=== PATIENT | male | born 1955 | race Caucasian/White ===

== ENCOUNTER 2016-03-28 13:46 | Observation (INO) | payer BC ==
[2016-03-28 14:17] LABS: Hematocrit 44 % (42-52); Hemoglobin 14.8 g/dl (14.0-18.0); Mean Corpuscular HGB Conc 34 g/dl (31-36); Mean Corpuscular Hemoglobin 30 pg (27-31); Mean Corpuscular Volume 90 fL (80-94); Mean Platelet Volume 7 um3 (7.4-10.4); Red Blood Count 4.87 10^6/ul (4.0-5.4); Red Cell Distribution Width 13 % (10.5-15); White Blood Count 4.3 10^3/ul (3.5-10.8)
--- NOTE | 2016-03-28 14:18 | RAD ---
Indication: Neurologic changes. Code Royal. Left-sided weakness, slurred speech. CT of the brain was performed without IV contrast. Ventricular structures are midline. No midline shift is noted. The extra-axial spaces are unremarkable. There is no evidence of intracranial mass or hemorrhage. No other high or low density lesions are identified. Mastoid air cells and paranasal sinuses are otherwise unremarkable. IMPRESSION: NO INTRACRANIAL MASS OR HEMORRHAGE IS NOTED.
[2016-03-28] MEDS ORDERED: Aspirin EC TAB* 325 MG PO ONE (14:29)
[2016-03-28 14:35] LABS: Albumin 4.3 g/dL (3.2-5.2); BUN/Creatinine Ratio 14.8 (8-20); Calcium 9.4 mg/dL (8.6-10.3); EGFR African American 83.1 (>60); EGFR Non-African American 64.7 (>60); Globulin 3.4 g/dL (2-4); HDL Cholesterol 56.1 mg/dL; Potassium 3.7 mmol/L (3.5-5.0); Total Bilirubin 0.6 mg/dL (0.2-1.0); Total Protein 7.7 g/dL (6.4-8.9); Troponin I 0.01 ng/mL (<0.04)
[2016-03-28] MEDS ORDERED: Acetaminophen TAB* 325 MG PO PRN (15:07)
[2016-03-28] MEDS ORDERED: Ondansetron INJ* 2 MG/ML VIAL IV PRN (15:07)
[2016-03-28] MEDS ORDERED: Iohexol 350* (CONTRAST) 500 ML MDV IV ONE (15:11)
[2016-03-28] MEDS ORDERED: NS 0.9% 1000 ML* 1,000 ML IV SCH (15:15)
--- NOTE | 2016-03-28 15:57 | RAD ---
INDICATION: Code kamara. COMPARISON: Comparison is made with prior chest x-ray study from February 05, 2010. TECHNIQUE: A portable view of the chest was obtained. FINDINGS: Cardiac and mediastinal contours appear to be within normal limits. The lungs are clear. No pleural effusion is seen. IMPRESSION: NO EVIDENCE FOR ACUTE DISEASE.
[2016-03-28] MEDS ORDERED: Enoxaparin(*) 40 MG/0.4 ML SYR SUBCUT SCH (16:00)
--- NOTE | 2016-03-28 16:31 | RAD ---
INDICATION: TIA/code kamara. COMPARISON: March 28, [address] TECHNIQUE: Multidetector CT images were obtained from the aortic arch to the vertex of the head with 80 mL Omnipaque 350 IV contrast. Arterial phase of enhancement. Multiplanar reformation including maximum intensity projection. 3-D arterial volume rendering. Stenosis estimations based on denominator of distal arterial diameter. NECK ANGIOGRAM REPORT: Normal configuration of the branch vessels at the aortic arch. Negative for ostial stenosis. Motion artifact and artifact from dental amalgam moderately degrading image quality. Patent RIGHT common and internal carotid arteries without appreciable atherosclerotic plaque. Patent LEFT common and internal carotid arteries without appreciable atherosclerotic plaque. LEFT dominant vertebral artery with both vertebral arteries patent and contributing to the basilar artery. No arterial dissection evident. NECK ANGIOGRAM IMPRESSION: Negative for carotid or vertebral artery stenosis or occlusion. HEAD ANGIOGRAM REPORT: Patent intracranial internal carotid arteries as well as the M1 and M2 segments of the middle cerebral arteries and A1 and A2 segments of the anterior cerebral arteries. Patent diminutive anterior communicating artery. Patent basilar artery and unremarkable cerebellar artery origins. Patent posterior cerebral arteries. Normal variant hypoplastic RIGHT posterior communicating artery. Patent LEFT posterior communicating artery. No intracranial aneurysm or vascular malformation evident. HEAD ANGIOGRAM IMPRESSION: Negative for central intracranial arterial stenosis or occlusion. CPT II: CPT II Codes: 3100F
--- NOTE | 2016-03-28 16:58 | RAD ---
INDICATION: TIA. COMPARISON: Comparison is made with a prior CT of the brain from 2016. TECHNIQUE: Sagittal T1, axial T1, T2, susceptibility, FLAIR and diffusion weighted images were obtained. FINDINGS: The ventricles, cisterns and sulci appear to be within normal limits. There is a small area of increased signal intensity on T2-weighted images present in the cortex and subcortical white matter in the anterior right parietal lobe with associated restricted diffusion most consistent with a small infarct. There is no evidence for hemorrhage. The visualized portion of the paranasal sinuses and mastoid air cells appear clear. IMPRESSION: FINDINGS CONSISTENT WITH A SMALL ACUTE NONHEMORRHAGIC INFARCT IN THE ANTERIOR RIGHT PARIETAL LOBE.
--- NOTE | 2016-03-28 17:38 | CONS ---
CC: Dr. Gunter NEUROLOGY CONSULT: DATE OF CONSULT: 03/28/16 LOCATION: The patient is in the emergency department. REASON FOR CONSULT: Code Royal. PRIMARY CARE PHYSICIAN: Dr. Gunter. HISTORY OF PRESENT ILLNESS: Silas Churchill is a 60-year-old male with no significant past medi ramonita history on no medications who had the acute onset at 1:40 p.m. of slurred speech, difficulty wit h his balance, and left arm numbness that he describes as though his hand and arm were alien to him. He was at home at that time and initially sat down in a chair for a few minutes and then decided t o tell his that he was not feeling well and she drove him to the emergency department. She not es that he had difficulty with his balance when trying to walk to the car. She denies noticing any facial droop. She did notice some dysarthria, however. Upon my arrival to see the patient in the e mergency department after his CAT scan, he was back to his baseline. He has never had any symptoms like this in the past. He has no neck pain and no recent neck trauma. 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 HOME MEDICATIONS: None. ALLERGIES: None. FAMILY HISTORY: Mother and father had heart disease and both were smokers. His brother has diabete s which the patient attributes to a poor diet. 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 He denies tobacc o use or significant alcohol use. REVIEW OF SYSTEMS: He denies any recent fevers or illness. Otherwise, as per HPI. PHYSICAL EXAM: Vital Signs: Temperature 98.1, blood pressure 142/75, heart rate of 70 and regular, and oxygen saturation 100% on room air. On general examination, he is a very friendly [place] gentleman in good spirits, very jovial, and sharon alton. Heart reveals a regular rate and rhythm with no murmurs, rubs, or gallops. There are no hough tid bruits. Lungs are clear to auscultation bilaterally. On neurologic examination, he has a normal mental status. He was able to read the stroke cards with out any dysarthria or aphasia. Pupils are equal, round, reactive from 3 to 2 mm bilaterally. Versi ons are full without nystagmus. Visual dumont are full to confrontation with no extinction to doubl e simultaneous stimulation. Facial sensation is intact to light touch and pinprick in the V1 to V3 d istributions. Facial musculature is full and symmetric. Hearing is intact to voice. Palate elevat es symmetrically and the tongue is midline. On motor examination, he has normal bulk and tone in the upper and lower extremities. Strength is f ull proximally and distally with no pronator drift. Sensation is intact to pinprick in the upper and lower extremities. Cmroli-rn-jcdg is without ataxia. Romberg is negative. The patient was able t o heel-toe and tandem walk. DIAGNOSTIC STUDIES/LAB DATA: Chemistry panel is overall unremarkable aside from nonfasting glucose of 133. Total cholesterol is 183, LDL 109, HDL 56, and triglycerides 88. CBC is pending. A noncontrast head CT was personally reviewed and showed no evidence of hemorrhage or early signs of ischemic stroke. IMPRESSION AND PLAN: Silas Churchill is a 60-year-old man with no significant past medical hist ory who presented with transient neurologic symptoms consisting of left arm numbness, dysarthria, an d balance difficulties. This constellation of symptoms is concerning for transient ischemic attack, potentially referable to the right hemisphere. His NIH Stroke Scale is currently 0. He will be br ought in for a transient ischemic attack workup which will include CT angiogram of the head and neck , MRI of the brain without contrast, telemetry monitoring, lipids, and hemoglobin A1c measurements. He will be given an aspirin here in the emergency department and will be started on a baby aspirin once daily. For his LDL of 109, he should be started on statin and I would be fine with a lower dos e of atorvastatin 20 or 40 mg. He will also undergo echocardiogram with bubble study. Thank you for this consultation. Dr. Cee takes over the service tomorrow and will receive sign- out on the patient. [id number]/[facility] #: [id number]
--- NOTE | 2016-03-28 18:19 | HP ---
ADMISSION HISTORY AND PHYSICAL: DATE OF ADMISSION: 03/28/15 PRIMARY CARE PROVIDER: Dr. Gunter. HEALTHCARE PROXY: His . CODE STATUS: Full. SOURCE OF INFORMATION: History obtained from interview with the patient and his . RELIABILITY: Excellent. CHIEF COMPLAINT: Left-sided numbness, slurred speech. HISTORY OF PRESENT ILLNESS: This is a pleasant 60-year-old man, no known past medical history, who had been in his usual state of health until approximately 1 :40 today, when he felt like his left arm was numb, described as feeling "alien. " He got up to make some tea and felt off balance. He told his that he was feeling disoriented, which she recalls, he described as feeling lightheaded and she also indicated that he was slurring his speech. She recognized these symptoms as a possible stroke, evaluated his face, did not notice any facial asymmetry, but did note he had impaired gait with falling to the left. They did not activate EMS, but walked to the car with some assistance and drove to [facility]. The symptoms persisted on presentation; however, resolved prior to returning from CAT scan of the head for a total duration of approximately 25 minutes. When seen by this author, approximately 1 hour and 20 minutes after the initiation of events, the patient was asymptomatic, had no residual events. The patient has been in his usual state of health, was actually out yesterday __working on his___ car. He denies any trauma to his neck or neck pain. Denies any recent travel, change in his medication, or sick contacts. PAST MEDICAL HISTORY: None. MEDICATIONS: None, nothing over the counter. ALLERGIES: None. FAMILY HISTORY: Mother with CHF. SOCIAL HISTORY: No history of tobacco use. Drinks alcohol in moderation. He is a retired biomedical researcher. REVIEW OF SYSTEMS: As per HPI. Otherwise, all other systems negative. PHYSICAL EXAMINATION GENERAL: Jovial gentleman, sitting up in bed, interactive, pleasant, laughing, in no apparent distress. VITAL SIGNS: In the emergency room, 140/68, heart rate 70, respiratory rate 14 , 98% on room air, T-max 98.1. HEENT: Oropharynx is clear. Moist mucous membranes. Sclerae anicteric. NECK: Has non-elevated JVD. No goiter. No palpable cervical or supraclavicular lymphadenopathy. No carotid bruit. LUNGS: Clear to auscultation. HEART: Regular rate and rhythm. No murmurs, rubs, or gallops. ABDOMEN: Soft, nontender, nondistended with positive bowel sounds. EXTREMITIES: Warm and well-perfused without clubbing, cyanosis, or edema. He has less than 2-second capillary refill. Good skin turgor. NEUROLOGIC: He is alert and oriented x3. Cranial nerves II through XII are intact. He has no dysmetria. Strength 5/5 throughout. Sensation to light touch intact. Scored a 0 on NIH Stroke Scale when administered by Dr. Patterson. DIAGNOSTIC STUDIES/LAB DATA: Laboratory data reviewed: White blood cell count 4.3, hemoglobin 14.8, platelets 248. INR 1.0. Sodium 136, potassium 3.7 , chloride 102, bicarb 30, BUN 17, creatinine 1.15, glucose 133. Lactic acid 1.0. Troponin I 0.01. Nonfasting cholesterol 183, LDL 109, and HDL 56. Data reviewed: Brain CT, impression: No intracranial mass or hemorrhage is noted. Chest x-ray: No active cardiopulmonary disease. EKG not obtained, will need acquisition now. ASSESSMENT AND PLAN: This is a 60-year-old previously healthy man presenting with sudden-onset left arm numbness associated with gait imbalance and slurred speech lasting approximately 30 minutes, concerning for transient ischemic attack. Transient ischemic attack: Seen by Neurology in the emergency room. Krupa Royal called. Appreciate their consultation assistance. Check MRI brain, CTA head and neck. Continue neuro checks overnight. He received aspirin full dose in the emergency room. We will continue low dose tomorrow. Transthoracic echocardiogram with bubble ordered. Add on hemoglobin A1c to ER labs and check fasting lipids in the morning. Bedside swallow eval after which he can resume normal diet. Admit, observation to telemetry in the CDU unit. DVT prophylaxis: Enoxaparin. Out of bed ad kailyn. Code status is full. CC: Dr. Gunter * [id number]/[facility] #: [id number] MTDD
[2016-03-28 18:48] LABS: Urine Bilirubin Negative (Negative); Urine Glucose Negative (Negative); Urine Nitrite Negative (Negative)
--- NOTE | 2016-03-28 21:20 | ED ---
Ryan Neely Erika, scribed for Sulaiman Marshall MD on 03/28/16 at 1419 . Neurological HPI - HPI Summary HPI Summary: Patient is a 60-year-old male presenting to the ED with a CC of neurological deficits. Per , pt developed symptoms of dizziness, feeling off-balance, left arm numbness, and slurred speech starting at 13:40 today. He describes his left hand as not feeling like his own hand. Pt reports no symptoms this morning. Currently, pt reports lightheadedness, but reports other symptoms have been improving. Pt denies hospitalizations, surgeries, or intrathecal injections in the last few months. He does not take blood thinners, and does not take aspirin daily. Patient does not take any medication and reports no PMHx - he states Chong Gunter is his PCP, and he has not had a physical in a few years. PSHx hernia repair 5+ years ago. FHx [place], CHF. Pt does not smoke or drink. Last known well 13:40 03/28/2016 - History of Current Complaint Stated Complaint: SLURRED SPEECH/LT SIDE TINGLING Last Known Well Date: 13:40 Hx Obtained From: Patient, Family/Coal Handler - Onset/Duration: Started minutes ago, Resolved - mostly Timing: Constant Onset Severity: Moderate Current Severity: Mild Aggravating: Nothing Alleviating: Spontanious Resolution Associated Signs and Symptoms: Positive: Dizziness - and off-balance, Impaired Speech, Numbness - left hand, Lightheadness TPA Considered: No - symptoms have resolved - Allergy/Home Medications Allergies/Adverse Reactions: Allergies Allergy/AdvReac Type Severity Reaction Status Date / Time No Known Allergies Allergy Verified 01/29/13 16:48 PMH/Surg Hx/FS Hx/Imm Hx Endocrine/Hematology History: Denies: Hx Diabetes Cardiovascular History: Denies: Hx Hypertension - Surgical History Surgery Procedure, Year, and Place: hernia repair - Family History Known Family History: Positive: Cardiac Disease - [place], CHF - Social History Lives: With Family Alcohol Use: None Hx Substance Use: No Substance Use Type: Reports: None Hx Tobacco Use: No Smoking Status (MU): Never Smoked Tobacco Review of Systems Negative: Fever Neurological: Other - dizziness, off-balance, lightheadedness Positive: Numbness - Left arm, Slurred Speech All Other Systems Reviewed And Are Negative: Yes Physical Exam - Summary Physical Exam Summary: Constitutional: Comfortable, pleasant, alert, jovial HEENT: moist mucosa Neck: Soft, supple, no adenopathy, no edema. No carotid bruits. Heart: S1, S2, RRR, no murmurs, rubs, or gallops Lungs: clear, breathing comfortably, no wheezes, no rales Abdomen: Soft, flat, non-tender. Extremities: No edema, calves non-tender Neurological: A&Ox3. Obvious slurred speech. CN III-XII intact. Negative Romberg test. Full strength 5/5 bilaterally, including heel raise, toe raise, heel to toe, and walking. Psychological: logical, coherent Triage Information Reviewed: Yes Vital Signs On Initial Exam: Initial Vital Signs Temp 98.1 F 03/28/16 13:52 Pulse 70 03/28/16 13:52 Resp 16 03/28/16 13:52 BP 142/75 03/28/16 13:52 Pulse Ox 100 03/28/16 13:52 Vital Signs Reviewed: Yes Diagnostics - Vital Signs Vital Signs Temp Pulse Resp BP Pulse Ox 03/28/16 15:00 55 18 120/60 97 03/28/16 14:51 58 17 99 03/28/16 13:52 98.1 F 70 16 142/75 100 - Laboratory Lab Results: Lab Results 03/28/16 03/28/16 03/28/16 Range/Units 13:58 14:00 14:00 WBC 4.3 (3.5-10.8) 10^3/ul RBC 4.87 (4.0-5.4) 10^6/ul Hgb 14.8 (14.0-18.0) g/dl Hct 44 (42-52) % MCV 90 (80-94) fL MCH 30 (27-31) pg MCHC 34 (31-36) g/dl RDW 13 (10.5-15) % Plt Count 248 (150-450) 10^3/ul MPV 7 L (7.4-10.4) um3 Neut % (Auto) 54.5 (38-83) % Lymph % (Auto) 33.3 (25-47) % [place] % (Auto) 8.4 (1-9) % Eos % (Auto) 2.4 (0-6) % Baso % (Auto) 1.4 (0-2) % Absolute Neuts (auto) 2.3 (1.5-7.7) 10^3/ul Absolute Lymphs (auto) 1.4 (1.0-4.8) 10^3/ul Absolute Monos (auto) 0.4 (0-0.8) 10^3/ul Absolute Eos (auto) 0.1 (0-0.6) 10^3/ul Absolute Basos (auto) 0.1 (0-0.2) 10^3/ul Absolute Nucleated RBC 0 10^3/ul Nucleated RBC % 0 INR (Anticoag Therapy) 1.06 (0.89-1.11) APTT 31.1 (26.0-36.3) seconds Sodium (133-145) mmol/L Potassium (3.5-5.0) mmol/L Chloride (101-111) mmol/L Carbon Dioxide (22-32) mmol/L Anion Gap (2-11) mmol/L BUN (6-24) mg/dL Creatinine (0.67-1.17) mg/dL Est GFR ( Amer) (>60) Est GFR (Non-Af Amer) (>60) BUN/Creatinine Ratio (8-20) Glucose (70-100) mg/dL POC Glucose (mg/dL) 132 H (74-106) mg/dL Hemoglobin A1c (Less than 6.0) % Lactic Acid (0.5-2.0) mmol/L Calcium (8.6-10.3) mg/dL Total Bilirubin (0.2-1.0) mg/dL AST (13-39) U/L ALT (7-52) U/L Alkaline Phosphatase (34-104) U/L Troponin I (<0.04) ng/mL Total Protein (6.4-8.9) g/dL Albumin (3.2-5.2) g/dL Globulin (2-4) g/dL Albumin/Globulin Ratio (1-3) Triglycerides mg/dL Cholesterol mg/dL LDL Cholesterol mg/dL HDL Cholesterol mg/dL 03/28/16 03/28/16 03/28/16 Range/Units 14:00 14:00 14:00 WBC (3.5-10.8) 10^3/ul RBC (4.0-5.4) 10^6/ul Hgb (14.0-18.0) g/dl Hct (42-52) % MCV (80-94) fL MCH (27-31) pg MCHC (31-36) g/dl RDW (10.5-15) % Plt Count (150-450) 10^3/ul MPV (7.4-10.4) um3 Neut % (Auto) (38-83) % Lymph % (Auto) (25-47) % [place] % (Auto) (1-9) % Eos % (Auto) (0-6) % Baso % (Auto) (0-2) % Absolute Neuts (auto) (1.5-7.7) 10^3/ul Absolute Lymphs (auto) (1.0-4.8) 10^3/ul Absolute Monos (auto) (0-0.8) 10^3/ul Absolute Eos (auto) (0-0.6) 10^3/ul Absolute Basos (auto) (0-0.2) 10^3/ul Absolute Nucleated RBC 10^3/ul Nucleated RBC % INR (Anticoag Therapy) (0.89-1.11) APTT (26.0-36.3) seconds Sodium 136 (133-145) mmol/L Potassium 3.7 (3.5-5.0) mmol/L Chloride 102 (101-111) mmol/L Carbon Dioxide 30 (22-32) mmol/L Anion Gap 4 (2-11) mmol/L BUN 17 (6-24) mg/dL Creatinine 1.15 (0.67-1.17) mg/dL Est GFR ( Amer) 83.1 (>60) Est GFR (Non-Af Amer) 64.7 (>60) BUN/Creatinine Ratio 14.8 (8-20) Glucose 133 H (70-100) mg/dL POC Glucose (mg/dL) (74-106) mg/dL Hemoglobin A1c 5.3 (Less than 6.0) % Lactic Acid 1.0 (0.5-2.0) mmol/L Calcium 9.4 (8.6-10.3) mg/dL Total Bilirubin 0.60 (0.2-1.0) mg/dL AST 20 (13-39) U/L ALT 14 (7-52) U/L Alkaline Phosphatase 45 (34-104) U/L Troponin I 0.01 (<0.04) ng/mL Total Protein 7.7 (6.4-8.9) g/dL Albumin 4.3 (3.2-5.2) g/dL Globulin 3.4 (2-4) g/dL Albumin/Globulin Ratio 1.3 (1-3) Triglycerides 88 mg/dL Cholesterol 183 mg/dL LDL Cholesterol 109 mg/dL HDL Cholesterol 56.1 mg/dL Result Diagrams: 03/28/16 14:00 03/28/16 14:00 Lab Statement: Any lab studies that have been ordered have been reviewed, and results considered in the medical decision making process. - Radiology CXR Radiology Interpretation Completed By: Radiologist - IMPRESSION: NO EVIDENCE FOR ACUTE DISEASE. - CT CT Brain CT Interpretation Completed By: Radiologist - IMPRESSION: NO INTRACRANIAL MASS OR HEMORRHAGE IS NOTED. NIH Scale - NIH Scale Level of Consciousness: Alert/Keenly Responsive Ask Patient the Month and His/Her Age: Both Correct Ask Pt to Open/Close Eyes and Business Continuity Strategy Director/Release Non-Paretic Hand: Both Correctly Best Gaze (Only Horizontal Eye Movement): Normal Visual Field Testing: No Visual Loss Facial Paresis-Pt to Smile & Close Eyes or Grimace Symmetry: Normal/Symmetrical Motor Function - Right Arm: No Drift-Holds 10 Seconds Motor Function - Left Arm: No Drift-Holds 10 Seconds Motor Function - Right Leg: No Drift-Holds 10 Seconds Motor Function - Left Leg: No Drift-Holds 10 Seconds Limb Ataxia-Must be out of Proportion to Weakness Present: Absent Sensory (Use Pinprick to Test Arms/Legs/Trunk/Face): Normal Best Language (Describe Picture, Name Items): No Aphasia Dysarthria (Read Several Words): Normal Extinction and Inattention: No Abnormality Total Score: 0 Re-Evaluation - Re-Evaluation First Eval Re-Evaluation Time: 14:14 Comment: Performed NIH stroke scale at this time. Course/Dx - Course Assessment/Plan: He is a fairly healthy gentleman in his 60s who had what was likely a TIA. His symptoms have mainly resolved when he presented to the ED and by the time we completed an NIH stroke scale his score was 0. He will be admitted for further work up but does not meet criteria for TPA. - Diagnoses Provider Diagnoses: TIA (transient ischemic attack) During the Visit The Following Alert/Code Occurred: Code Ortiz - Physician Notifications Discussed Care of Patient With: At 14:00, Dr. Patterson (neurology) is at bedside to consult. Dr. Kaiser (radiology) at 14:10 - notified Dr. Marshall of negative brain CT. Dr. Ingram (hospitalist) at 14:22 - agrees to admit. Dr. Gunter (pt PCP /hospitalist) at 14:37 - would like pt admitted through Dr. Ingram, to Dr. Gunter' s service. Dr. Ingram at 14:38 - agrees with plan Instructed by Provider To: Admit As Inpatient - Critical Care Time Critical Care Time: 30-74 min - 60 minutes Discharge - Discharge Plan Condition: Stable Disposition: ADMITTED TO [facility] The documentation as recorded by the Ryan sykes Erika accurately reflects the service I personally performed and the decisions made by Joanna pavon Farzad, MD.
[2016-03-29 06:14] LABS: BUN/Creatinine Ratio 11.8 (8-20); Calcium 8.6 mg/dL (8.6-10.3); EGFR African American 79.9 (>60); EGFR Non-African American 62.1 (>60); HDL Cholesterol 46.2 mg/dL; Potassium 3.6 mmol/L (3.5-5.0)
[2016-03-29] MEDS ORDERED: Aspirin EC Low Dose* 81 MG TAB.EC PO SCH (09:00)
[2016-03-29 09:25] VITALS: BP 108/70
--- NOTE | 2016-03-29 09:57 | PN ---
Subjective - Subjective Reason for Note: Discharge Note History: Discharge summary: I obtained the history from the patient and also from both Dr. Ingram's and Dr. Patterson's notes -both part of the electronic medical record. He was about to make a cup of tea yesterday at around 1 pm and noted that his gait was abnormal. He tried to picker a phone with his left hand and found it was clumsy. He had some difficulty with speech - finding words He had no headache, nausea. There was no chest pain/palpitations. He has had no recent intercurrent illnesses. His was working at home and called 911. The symptoms lasted an hour. Today he is back to baseline. Risk factors: mild dyslipidemia no hypertension no prediabetes/diabetes mellitus no tobacco He has no heart valve disease, no symptoms of infective endocarditis, no history or symptoms of atrial fibrillation. 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 Current Medications: Current Medications Acetaminophen (Tylenol Tab*) 650 mg PO Q6H PRN PRN Reason: PAIN Aspirin (Aspirin Ec Low Dose*) 81 mg PO DAILY [facility] Enoxaparin Sodium (Lovenox(*)) 40 mg SUBCUT Q24H [facility] Last Admin: 03/28/16 17:16 Dose: 40 mg Ondansetron HCl (Zofran Inj*) 4 mg IV Q4H PRN PRN Reason: NAUSEA Rosuvastatin Calcium (Crestor (Nf)) 20 mg PO BEDTIME [facility] - Review of Systems Constitutional Symptoms: No: Weight Gain, Weight Loss, Weakness, Fatigue, Fever , Night Sweats Dermatology: Rash: No Eyes: Positive: Other - 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 Negative: Change in Vision, Double Vision Thyroid: Negative: Goiter, Thyroid Nodule Pulmonary: Negative: Cough, Sputum, Respiratory Distress, Shortness of Breath, Exercise Intolerance Cardiology: Negative: Chest Pain, Shortness of Breath, Palpitations, Swelling of Ankles, Peripheral Vascular Dis Gastroenterology: Negative: Abdominal Pain, Nausea, Vomiting, Anorexia, Change in Bowel Habits Genital - Urinary: Negative: Dysuria, Hematuria, Polyuria Endocrinology: Negative: Thyroid Problems, Adrenal Problems, Diabetes Mellitus, Pituitary disease Neurology: Positive: Change in Speech, Change in Walking, Unexplained Weakness, Hx of Stroke\TIA Negative: Headache, Migraines, Change in Vision, Diplopia, Dizziness, Change in Balancing, Change in Coordination, Change in Memory, Change in Sphincter Function, Numbness\Paresthesiae, Hx of Seizures Psychiatry: Negative: Depression, Anxiety Allergies: Allergies Allergy/AdvReac Type Severity Reaction Status Date / Time No Known Allergies Allergy Verified 01/29/13 16:48 Objective - Vital Signs Vital Signs: Vital Signs 03/28/16 03/28/16 03/28/16 15:15 16:00 17:33 Temperature 98.3 F Pulse Rate 58 56 65 Respiratory 14 19 18 Rate Blood Pressure 129/80 137/80 (mmHg) O2 Sat by Pulse 99 99 97 Oximetry 03/28/16 03/28/16 03/29/16 19:43 20:00 00:48 Temperature 97.5 F 97.5 F Pulse Rate 57 54 Respiratory 16 16 Rate Blood Pressure 128/80 124/79 (mmHg) O2 Sat by Pulse 97 97 98 Oximetry 03/29/16 03/29/16 04:34 07:57 Temperature 97.6 F 97.3 F Pulse Rate 54 50 Respiratory 16 16 Rate Blood Pressure 106/69 108/70 (mmHg) O2 Sat by Pulse 98 98 Oximetry - Intake and Output Intake and Output: Intake & Output 03/26/16 03/27/16 03/28/16 03/29/16 11:59 11:59 11:59 11:59 Intake Total 2200 Output Total 300 Balance 1900 Weight 173 lb Intake: IV Fluids 2000 NS (0.9%) 1000 Oral 200 Output: Urine 300 Other: Estimated Void Medium Date of Last Bowel 03/28/16 Movement # Bowel Movements 0 # Voids 3 ADLs: Meal Record Start: 03/28/16 16: 14 Freq: DAILY@0900,1400,1800 Status: Complete Created 03/28/16 16:14 System (Rec: 03/28/16 16:14 System [id number]) ADLs: Meal Record Start: 03/28/16 17: 33 Freq: DAILY@0900,1400,1800 Status: Active Created 03/28/16 17:33 [id number] (Rec: 03/28/16 17:33 [id number]) Document 03/28/16 18:00 [id number] (Rec: 03/28/16 22:14 [id number] [id number]) Intake and Output Start: 03/28/16 16: 14 Freq: DAILY@0600,1400,2200 Status: Complete Created 03/28/16 16:14 System (Rec: 03/28/16 16:14 System [email or web address]) Intake and Output Start: 03/28/16 17: 33 Freq: DAILY@0600,1400,2200 Status: Active Created 03/28/16 17:33 [id number] (Rec: 03/28/16 17:33 [id number] TELE-C05) Document 03/28/16 22:00 [id number] (Rec: 03/28/16 22:14 [id number] [id number]) Document 03/29/16 06:00 [id number] (Rec: 03/29/16 07:17 [id number] [id number]) - Physical Exam General Physical Exam Comment: He is alert, oriented and in good humor. No evidence of hemodynamic problems. He has no signs of infective endocarditis General: No Cyanosis, No Anemia, No Jaundice, No Clubbing Eye Exam: bilateral: EOMI - normal, Vision Field - normal Skin: Normal: Rash Head: Yes Normocephalic -: No Tremor, No Goiter, No Thyroid Nodule Endocrine: No Central Obesity, No Acromegaly, No Vitiligo, No Flushing, No Acanthosis nigricans, No Violaceious striae, No Antonio Syndrome, No Buccal pigmenatation Lungs and Chest: Yes: Chest Expansion Full, Chest Expansion Symetrica, Percussion Note Resonant, Vessicular Breath Sounds. No: Crackles, Wheezes Heart Rate and Rhythm: Regular JVP: Not Elevated Additional Cardiovascular: Yes: Normal Heart Sounds. No: Heart Murmur, Pedal Edema Abdominal Exam: Yes: Soft, Bowel Sounds Present. No: Distention, Rigidity, Abdominal Mass, Hepatomegaly, Splenomegaly, Abdominal Tenderness - Extremities Cranial Nerves II-XII Intact: Yes Limbs: Normal Power, Normal Tone, Normal Coordination, Normal Sensation, Normal Gait Reflexes: Bilateral: Biceps, Triceps, Supinator, Knee, Ankle, Plantar - downgoing - Neuro Orientation: A/O x3 Psychiatric: Normal Speech: Normal Results - Results Lab Results: Laboratory Results - last 24 hr 03/28/16 03/29/16 18:30 04:59 Sodium 137 Potassium 3.6 Chloride 106 Carbon Dioxide 28 Anion Gap 3 BUN 14 Creatinine 1.19 H Est GFR ( Amer) 79.9 Est GFR (Non-Af Amer) 62.1 BUN/Creatinine Ratio 11.8 Glucose 95 Calcium 8.6 Triglycerides 76 Cholesterol 153 LDL Cholesterol 92 HDL Cholesterol 46.2 Urine Color Straw Urine Appearance Clear Urine pH 6.0 Ur Specific [place] 1.026 Urine Protein Negative Urine Ketones Negative Urine Blood Negative Urine Nitrate Negative Urine Bilirubin Negative Urine Urobilinogen Negative Ur Leukocyte Esterase Negative Urine Glucose Negative Radiology Results: Patient Name: EMMANUEL BECK Medical Record#: [id number] Ordering Physician: Mariano Ingram MD Acct.#: [id number] : 1955 Age: 60 Sex: M Location: [address] [place] [address]/TELEMETRY Exam Date: 03/28/16 1507 ADM Status: ADM Raffi Order Information: CTA HEAD/NECK Accession Number: [id number] CPT: 67740 INDICATION: TIA/code kamara. COMPARISON: March 28, [address] TECHNIQUE: Multidetector CT images were obtained from the aortic arch to the vertex of the head with 80 mL Omnipaque 350 IV contrast. Arterial phase of enhancement. Multiplanar reformation including maximum intensity projection. 3-D arterial volume rendering. Stenosis estimations based on denominator of distal arterial diameter. NECK ANGIOGRAM REPORT: Normal configuration of the branch vessels at the aortic arch. Negative for ostial stenosis. Motion artifact and artifact from dental amalgam moderately degrading image quality. Patent RIGHT common and internal carotid arteries without appreciable atherosclerotic plaque. Patent LEFT common and internal carotid arteries without appreciable atherosclerotic plaque. LEFT dominant vertebral artery with both vertebral arteries patent and contributing to the basilar artery. No arterial dissection evident. NECK ANGIOGRAM IMPRESSION: Negative for carotid or vertebral artery stenosis or occlusion. HEAD ANGIOGRAM REPORT: Patent intracranial internal carotid arteries as well as the M1 and M2 segments of the middle cerebral arteries and A1 and A2 segments of the anterior cerebral arteries. Patent diminutive anterior communicating artery. Patent basilar artery and unremarkable cerebellar artery origins. Patent posterior cerebral arteries. Normal variant hypoplastic RIGHT posterior communicating artery. Patent LEFT posterior communicating artery. No intracranial aneurysm or vascular malformation evident. HEAD ANGIOGRAM IMPRESSION: Negative for central intracranial arterial stenosis or occlusion. CPT II: CPT II Codes: 3100F <Electronically signed by Camilo Ernst MD in OV> 03/28/16 1627 Dictated By: Camilo Ernst MD Dictated Date/Time: 03/28/16 1627 Transcribed Date/Time: 03/28/16 1618 Copy to: Patient Name: EMMANUEL BECK Medical Record#: [id number] Ordering Physician: Sulaiman Marshall MD Acct.#: [id number] : 1955 Age: 60 Sex: M Location: EMERGENCY DEPARTMENT Exam Date: 03/28/161399 ADM Status: REG ER Order Information: CHEST AP PORTABLE Accession Number: [id number] CPT: 78079 INDICATION: Code kamara. COMPARISON: Comparison is made with prior chest x-ray study from February 05, 2010. TECHNIQUE: A portable view of the chest was obtained. FINDINGS: Cardiac and mediastinal contours appear to be within normal limits. The lungs are clear. No pleural effusion is seen. IMPRESSION: NO EVIDENCE FOR ACUTE DISEASE. <Electronically signed by Adis Valencia MD in OV> 03/28/16 155 Dictated By: Adis Valencia MD Dictated Date/Time: 03/28/16 1554 Transcribed Date/Time: 03/28/16 1553 Copy to: CC:Chong Gunter MD; Sulaiman Marshall MD Imaging - [facility] - [place] [facility] [address] [address] ph [phone]) ph ([phone]) ph ([phone]) Patient Name: EMMANUEL BECK Medical Record#: [id number] Ordering Physician: Mariano Ingram MD Acct.#: [id number] : 1955 Age: 60 Sex: M Location: [address] [place] [address] - MEDICAL/TELEMETRY Exam Date: 03/28/16 1507 ADM Status: ADM Raffi Order Information: MRI BRAIN W/O Accession Number: [id number] CPT: 06770 INDICATION: TIA. COMPARISON: Comparison is made with a prior CT of the brain from [facility] 2016. TECHNIQUE: Sagittal T1, axial T1, T2, susceptibility, FLAIR and diffusion weighted images were obtained. FINDINGS: The ventricles, cisterns and sulci appear to be within normal limits. There is a small area of increased signal intensity on T2-weighted images present in the cortex and subcortical white matter in the anterior right parietal lobe with associated restricted diffusion most consistent with a small infarct. There is no evidence for hemorrhage. The visualized portion of the paranasal sinuses and mastoid air cells appear clear. IMPRESSION: FINDINGS CONSISTENT WITH A SMALL ACUTE NONHEMORRHAGIC INFARCT IN THE ANTERIOR RIGHT PARIETAL LOBE. <Electronically signed by Adis Valencia MD in OV> 03/28/161654 Dictated By: Adis Valencia MD Dictated Date/Time: 03/28/161654 Transcribed Date/Time: 03/28/16 1649 Copy to: CC:Chong Gunter MD; Mariano Ingram MD Imaging - [facility] Imaging - [facility] [address] [address] ph [phone]) ph ([phone]) ph ([phone]) 1 of 1 1 of 1 1 of 2 Assessment - Problem List Assessment: Patient Problems Hypercholesterolemia (Acute) Right sided cerebral hemisphere cerebrovascular accident (Acute) Plan: I reviewed the MRI scans and the CTA myself. There is an area of increased signal in the diffusion weighted images in the right parietal lobe corresponding to h is symptoms. This suggests stroke rather than TIA (though by history this is a TIA). He is completely recovered - normal neurologic examination - gait, speech, balance (Romberg's), coordination all normal. 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 I will discuss a 1 month event monitor after discharge. I have counseled the patient and his /son about brain attack/heart attack action (call [phone]). He is ready for discharge.
[2016-03-29] MEDS ORDERED: Atorvastatin* 40 MG TAB PO SCH (21:00)
== END 2016-03-29 13:12 | disposition home or self-care (01) ==
LOC: ED 13:46 → MEDTELE 15:10
PROVIDERS: ADMIT Internal Medicine; ATTEND Internal Medicine
DX: G45.9 Transient cerebral ischemic attack, unspecified (principal); E78.00 Pure hypercholesterolemia, unspecified; Z79.899 Other long term (current) drug therapy
CPT/HCPCS: 36415; 70450; 70496; 70498; 70551; 71010; 80048; 80053; 80061; 81003; 83036; 83605; 84484; 85025; 85610; 85730; 93005; 96360; 96361; 96372; 99291; A9270-GY; G0378; J1650; Q9967